=== PATIENT | female | born 1975 | race Caucasian/White ===

== ENCOUNTER 2018-05-01 18:43 | Emergency (ER) | payer OTHER, SELFPAY ==
[2018-05-01 19:24] VITALS: BP 154/106; PULSE 101; RESP 20; TEMP 37.2; O2SAT 100; BMI 46.4
--- NOTE | 2018-05-01 21:38 | ED_ITS ---
HPI - Ear Problem <VIKKI Alcazar - Last Filed: 05/01/18 22:04> General Chief complaint: Ear Stated complaint: EAR INFECTION NOT MUCH MOVEMENT OF FACE Time Seen by Provider: 05/01/18 21:15 Source: patient Mode of arrival: ambulatory Limitations: no limitations History of Present Illness HPI Narrative: 42-year-old female here for complaint of having pain and fullness to her right ear on and off over the past several weeks. She denies having a fever. She denies any drainage from the right ear. She reports that she has had cold-like symptoms on off for the past couple weeks as well. She was treated for otitis media with antibiotics which she reports she has completed that regimen. She also reports over the last couple of days that she has had some decreased ability to blink on the right eye. And also weakness to the right side of her lips. She denies any trauma to the inside of her face. She is ambulatory in the emergency room. No other neurological deficits. No weakne sses to her extremities. Positive p.o. intake. No nausea vomiting. No other concerns or complaints at this time. MD Complaint: ear pain Related Data Previous Rx's Medication Instructions Recorded artificial tears(hypromellose) 2 drop EYE-RIGHT Q3H PRN #15 ml 05/01/18 prednisone See Rx Instructions .ROUTE 05/01/18 .COMPLEX #45 tab Allergies Allergy/AdvReac Type Severity Reaction Status Date / Time cyclobenzaprine Allergy Rash Verified 05/01/18 19:30 [From Flexeril] Review of Systems <VIKKI Alcazar - Last Filed: 05/01/18 22:04> Constitutional Denies chills, Denies fever(s), Denies lethargy and Denies weakness Eyes Denies change in vision, Denies eye discharge, Denies irritation and Denies loss of vision ENT Comments: Decreased movement to right lips and also right eyelid. Complaint of fullness and discomfort to her right ear. Cardiovascular Denies chest pain, Denies irregular heart rhythm, Denies lightheadedness, Denies palpitations, Denies dyspnea, Denies dyspnea on exertion and Denies orthopnea Respiratory Denies cough, Denies dyspnea, Denies dyspnea on exertion and Denies wheezing Genitourinary Denies hematuria, Denies flank pain, Denies urinary incontinence and Denies urinary urgency Musculoskeletal Denies back pain, Denies muscle weakness, Denies numbness and Denies tingling Integumentary/Breasts Denies pruritus, Denies erythema, Denies rash and Denies wounds Neurologic Denies loss of vision, Denies numbness, Denies tingling and Denies weakness Endocrine Denies palpitations Hematologic/Lymphatic Denies easy bruising Allergic/Immunologic Denies wheezing PFSH <VIKKI Alcazar - Last Filed: 05/01/18 22:04> Social History Smoking Status: Former smoker Social History Smoking Status: Former smoker Exam <VIKKI Alcazar - Last Filed: 05/01/18 22:04> Initial Vital Signs Initial Vital Signs: Vital Signs Temperature 99.0 F 05/01/18 19:24 Pulse Rate 101 H 05/01/18 19:24 Respiratory Rate 20 05/01/18 19:24 Blood Pressure 154/106 H 05/01/18 19:24 Pulse Oximetry 100 05/01/18 19:24 Const General: cooperative and well developed Nutritional Appearance: well nourished Orientation: alert, awake, oriented x3 and not confused HENMT Ears: hearing grossly normal bilaterally, external ears normal and TM's normal bilaterally Face and sinus: abnormal facial exam, face asymmetric (Decreased movement of the right lips. Decreased strength the right eyelid) and other (Patient able to close right eyelids. No weakness of the right forehead) Mouth: oral mucosae normal and mucous membranes abnormal Teeth and gingiva: dentition normal Throat: posterior oropharynx normal Eyes Conjunctivae: conjunctivae normal Sclera: sclerae normal Pupils: PERRL EOM: EOM intact bilaterally Cardio Rate: regular rate Rhythm: regular rhythm Heart Sounds: no click, no gallops, no murmurs and no rubs Pulses: normal peripheral pulses Neuro General: alert, oriented x3, gait normal and no focal motor deficits Speech: speech normal <Felicita Harris DO - Last Filed: 05/02/18 05:03> Initial Vital Signs Initial Vital Signs: Vital Signs Temperature 99.0 F 05/01/18 19:24 Pulse Rate 101 H 05/01/18 19:24 Respiratory Rate 20 05/01/18 19:24 Blood Pressure 154/106 H 05/01/18 19:24 Pulse Oximetry 100 05/01/18 19:24 Course <Kody VIKKI Lindsay - Last Filed: 05/01/18 22:04> Vital Signs - 8 hr 05/01/18 21:40 Temperature 97.8 F Pulse Rate 93 H Blood Pressure [Right Arm] 152/97 H Pulse Oximetry 97 <Felicita Harris DO - Last Filed: 05/02/18 05:03> Vital Signs - 8 hr 05/01/18 21:40 Temperature 97.8 F Pulse Rate 93 H Blood Pressure [Right Arm] 152/97 H Pulse Oximetry 97 Medical Decision Making <Kody VIKKI Lindsay - Last Filed: 05/01/18 22:04> MDM Narrative Medical decision making narrative: No appreciated ear infection on exam today. Signs and symptoms presents as serous otitis secondary to eustachian dysfunction due to a viral illness. Facial weakness appears as starting a Ruiz's palsy also most likely secondary to a viral illness. She is prescribed prednisone. She is also prescribed artificial tears to help keep her right eye are moist. Follow up with primary care provider later this week for re-evaluation. For any worsening symptoms return to the emergency room. Blood pressure was elevated today in the emergency room. Patient states she had this on last exam as well she is encouraged to follow up with primary care provider for evaluation of her elevated blood pressure today. Discharge Plan Departure Patient Disposition: Home Clinical Impression: Ruiz's palsy Acute serous otitis media Qualifiers: Laterality: right Recurrence: recurrent Qualified Code(s): H65.04 - Acute serous otitis media, recurrent, right ear Discharge Date/Time: 05/01/18 22:08 Interventions: ED Discharge Assessment Last Done: 05/01/18 22:07 Activity Restrictions/Additional Instructions: Right ear does not appear infected at this time right ear pressure and discomfort appears as having fluid in her middle ear secondary to eustachian tube dysfunction from the viral illnesses that you have had over the past several weeks. Weakness to the right side of the face appears to be Ruiz's palsy also most likely secondary to viral illnesses that you have had. You have been prescribed prednisone which is a steroid for anti-inflammatory effects use as directed. Also use artificial tears to keep her right eye moist to prevent f rom drying out as the eyelid can become weak. Blood pressure was elevated today. Recommend follow up with primary care provider for further evaluation for discussion of hypertension. For any worsening symptoms return to the emergency room. Prescriptions: New prednisone 20 mg tablet See Rx Instructions .ROUTE .COMPLEX Qty: 45 RF: 0 artificial tears(hypromellose) 0.5 % drops 2 drop EYE-RIGHT Q3H PRN (Reason: dry eyes) Qty: 15 RF: 0 Referrals: [facility] [Provider Group] <Felicita Harris, - Last Filed: 05/02/18 05:03> Cosign ED Attending Mckayature Attestation: I was immediately available in the department for consultation. Documentation has been reviewed. I agree with assessment and plan.
[2018-05-01 21:40] VITALS: BP 152/97; PULSE 93; TEMP 36.6; O2SAT 97
== END 2018-05-01 22:08 | disposition home or self-care (01) ==
PROVIDERS: Emergency Provider Nurse Practitioner Family
DX: G51.0 Bell's palsy (principal)
CPT/HCPCS: 99282

== ENCOUNTER 2018-07-03 13:33 | Emergency (ER) | payer OTHER, SELFPAY ==
[2018-07-03 13:48] VITALS: BP 161/103; PULSE 125; RESP 26; TEMP 36.4; O2SAT 98
[2018-07-03 14:00] VITALS: BP 161/99; PULSE 111; RESP 21; O2SAT 97
--- NOTE | 2018-07-03 14:11 | DI.RAD.S_ITS ---
PROCEDURE: XR CHEST 1V INDICATIONS: short of breath, tachy TECHNIQUE: One view of the chest was acquired. COMPARISON: None. FINDINGS: Surgical changes and devices: None. Lungs and pleura: Lungs are clear. No pleural effusions or pneumothorax. Mediastinum: Mediastinal contours appear normal. Heart size is normal. Bones and chest wall: No suspicious bony lesions. Overlying soft tissues appear unremarkable. IMPRESSION: 1. No acute cardiopulmonary disease. Dictated by: King Shelton M.D. on 07/03/2018 at 14:55 Approved by: King Shelton M.D. on 07/03/2018 at 14:55
--- NOTE | 2018-07-03 14:17 | ED.HA ---
HPI - Headache <NOLA Ochoa - Last Filed: 07/03/18 19:08> General Chief Complaint: Headache Stated Complaint: Head pain Time Seen by Provider: 07/03/18 14:10 Source: patient Mode of arrival: ambulatory Limitations: no limitations History of Present Illness HPI Narrative: The patient is a 42-year-old female former smoker with history of PCOS who presents with a chief complaint headache that started back in April. She was seen at this facility and diagnosed with Ruiz's palsy, followed up with ENT. Since then she has been complaining of worsening pain extending from the right side of her face around to the back. She states she feels numbness throughout pieces of ?her brain and that her pain has become significantly worse over the past few days. She denies any thunderclap sensation. She stated her pain initially improved with steroids, but now it is worse. She does complain shortness of breath. She denies any fevers nausea vomiting or diarrhea. Related Data Home Medications Medication Instructions Recorded Confirmed Calcium 1 tab PO DAILY 07/03/18 07/03/18 Glucosamine 1 tab PO DAILY 07/03/18 07/03/18 Gonzales-3 1 cap PO DAILY 07/03/18 07/03/18 duloxetine 20 mg PO BID 07/03/18 07/03/18 multivitamin 1 tab PO DAILY 07/03/18 07/03/18 prednisone 1 dose PO TAPER 07/03/18 07/03/18 Previous Rx's Medication Instructions Recorded artificial tears(hypromellose) 2 drop EYE-RIGHT Q3H PRN #15 ml 05/01/18 ketorolac 10 mg PO Q4-6H PRN 2 Days #8 tab 07/03/18 Allergies Allergy/AdvReac Type Severity Reaction Status Date / Time cyclobenzaprine Allergy Rash Verified 05/01/18 19:30 [[facility] Review of Systems <NOLA Ochoa - Last Filed: 07/03/18 19:08> Review of Systems GENERAL: Denies chills, fatigue, malaise, fever, sweats. HEENT: Denies sinus pain, ear pain, sore throat, difficulty swallowing, dizziness. RESPIRATORY: Denies dyspnea, cough, wheezing, hemoptysis, sputum. CARDIOVASCULAR: Denies chest pain, palpitations, orthopnea, edema, GASTROINTESTINAL: Denies nausea, vomiting, abdominal pain, diarrhea, constipation, melena. : Denies dysuria, frequency, incontinence, hematuria, urinary retention. MUSCULOSKELETAL: denies weakness, joint pain, or bony pain SKIN: Denies rash, skin lesions, or other NEUROLOGIC: See HPI PSYCHIATRIC: No concerning psychosocial issues. 12 point review of systems is negative except for those stated above PFSH <NOLA Ochoa - Last Filed: 07/03/18 19:08> Social History Smoking Status: Former smoker Social History Smoking Status: Former smoker Exam <NOAL Ochoa - Last Filed: 07/03/18 19:08> Narrative Exam Narrative: GENERAL: Obese female lying on stretcher appears slightly short of breath HEAD: Atraumatic. Normocephalic. pain to palpation right sinus area. EYES: Pupils equal round and reactive. Extraocular motions intact. No scleral icterus. No injection or drainage. ENT: Nose without bleeding, purulent drainage or septal hematoma. Throat without erythema, tonsillar hypertrophy or exudate. Uvula midline. Airway patent. NECK: Trachea midline. No JVD or lymphadenopathy. Supple, nontender, no meningeal signs. CARDIOVASCULAR: Regular rhythm without murmurs, gallops, or rubs. tachycardic rate. RESPIRATORY: Clear to auscultation. Breath sounds equal bilaterally. No wheezes, rales, or rhonchi. No cough. 4-6 word dyspnea noted. NEURO: AOx3. Strength is equal upper and lower extremities bilaterally. Cranial nerves grossly intact. SKIN: No rash or erythema. Initial Vital Signs Initial Vital Signs: Vital Signs Temperature 97.5 F L 07/03/18 13:48 Pulse Rate 125 H 07/03/18 13:48 Respiratory Rate 26 H 07/03/18 13:48 Blood Pressure 161/103 H 07/03/18 13:48 Pulse Oximetry 98 07/03/18 13:48 <Felicita Harris DO - Last Filed: 07/04/18 11:24> Initial Vital Signs Initial Vital Signs: Vital Signs Temperature 97.5 F L 07/03/18 13:48 Pulse Rate 125 H 07/03/18 13:48 Respiratory Rate 26 H 07/03/18 13:48 Blood Pressure 161/103 H 07/03/18 13:48 Pulse Oximetry 98 07/03/18 13:48 Course <HERBERT OchoaP-BC - Last Filed: 07/03/18 19:08> Orders Ordered: Discontinued Medications Dexamethasone (Decadron) 10 mg IV NOW ONE Stop: 07/03/18 14:23 Last Admin: 07/03/18 14:49 Dose: 10 mg Diphenhydramine HCl (Benadryl) 50 mg IV NOW ONE Stop: 07/03/18 15:24 Last Admin: 07/03/18 15:39 Dose: 50 mg Sodium Chloride (Normal Saline 0.9%) 1,000 mls @ 1,000 mls/hr IV BOLUS ONE Stop: 07/03/18 16:45 Last Infusion: 07/03/18 17:59 Dose: 0 mls/hr Admin: 07/03/18 15:51 Dose: 1,000 mls/hr Ketorolac Tromethamine (Toradol) 30 mg IV NOW ONE Stop: 07/03/18 15:24 Last Admin: 07/03/18 15:39 Dose: 30 mg Vital Signs - 8 hr 07/03/18 13:48 07/03/18 14:00 07/03/18 16:31 Temperature 97.5 F L Pulse Rate 125 H 111 H 89 Respiratory Rate 26 H 21 17 Blood Pressure 161/103 H Blood Pressure [Left Wrist] 161/99 H 143/94 H Pulse Oximetry 98 97 96 07/03/18 17:36 Temperature Pulse Rate 85 Respiratory Rate 17 Blood Pressure Blood Pressure [Left Wrist] 145/104 H Pulse Oximetry 97 <Felicita Harris DO - Last Filed: 07/04/18 11:24> Orders Ordered: Discontinued Medications Dexamethasone (Decadron) 10 mg IV NOW ONE Stop: 07/03/18 14:23 Last Admin: 07/03/18 14:49 Dose: 10 mg Diphenhydramine HCl (Benadryl) 50 mg IV NOW ONE Stop: 07/03/18 15:24 Last Admin: 07/03/18 15:39 Dose: 50 mg Sodium Chloride (Normal Saline 0.9%) 1,000 mls @ 1,000 mls/hr IV BOLUS ONE Stop: 07/03/18 16:45 Last Infusion: 07/03/18 17:59 Dose: 0 mls/hr Admin: 07/03/18 15:51 Dose: 1,000 mls/hr Ketorolac Tromethamine (Toradol) 30 mg IV NOW ONE Stop: 07/03/18 15:24 Last Admin: 07/03/18 15:39 Dose: 30 mg Vital Signs - 8 hr 07/03/18 13:48 07/03/18 14:00 07/03/18 16:31 Temperature 97.5 F L Pulse Rate 125 H 111 H 89 Respiratory Rate 26 H 21 17 Blood Pressure 161/103 H Blood Pressure [Left Wrist] 161/99 H 143/94 H Pulse Oximetry 98 97 96 07/03/18 17:36 Temperature Pulse Rate 85 Respiratory Rate 17 Blood Pressure Blood Pressure [Left Wrist] 145/104 H Pulse Oximetry 97 MDM - Headache <HERBERT OchoaP-BC - Last Filed: 07/03/18 19:08> Lab Data Result diagrams: 07/03/18 14:20 07/03/18 14:20 Lab Results 07/03/18 07/03/18 07/03/18 Range/Units 14:20 14:20 14:20 WBC 13.3 H (4.5-11.0) X10^3/uL RBC 4.92 (4.0-5.2) X10^6/uL Hgb 14.1 (12.0-16.0) g/dL Hct 42.1 (36-46) % MCV 85.6 (80-100) fL MCH 28.6 (26-34) PG MCHC 33.4 (30-36) % RDW 13.6 (11.6-14.8) % Plt Count 304 (150-400) X10^3/uL Neut % (Auto) 84.2 H (50-75) % Lymph % (Auto) 12.9 L (25-40) % Cambria % (Auto) 2.2 L (3-14) % Eos % (Auto) 0.1 L (2-4) % Baso % (Auto) 0.6 (0-2) % Neut # (Auto) 41641 H (4578-0541) /uL Lymph # (Auto) 1700 (5262-5777) /uL Cambria # (Auto) 300 (0-900) /uL Eos # (Auto) 0 (0-450) /uL Baso # (Auto) 100 (0-100) /uL PT 11.6 (10.1-12.7) SECONDS INR 1.0 (0.9-1.3) D-Dimer < 200 (<230) ng/mL Sodium 132 L (137-145) mmol/L Potassium 4.6 (3.4-5.1) mmol/L Chloride 96 L (98-107) mmol/L Carbon Dioxide 22 (22-32) mmol/L BUN 16 (7-17) mg/dL Creatinine 0.60 (0.52-1.04) mg/dL Estimated GFR > 60.0 (>60) mL/min BUN/Creatinine Ratio 26.7 H (6-22) Glucose 352 H (70-100) mg/dL Calcium 9.2 (8.4-10.2) mg/dL Total Bilirubin 0.9 (0.2-1.3) mg/dL AST 27 (14-36) IU/L ALT 41 (9-52) IU/L Alkaline Phosphatase 78 (38-126) U/L Total Creatine Kinase 21 L (30-135) U/L CK-MB (CK-2) TNP CK-MB (CK-2) Rel Index TNP Troponin I < 0.012 (0.01-0.034) ng/mL Total Protein 7.5 (6.3-8.2) g/dL Albumin 4.4 (3.5-5.0) g/dL Globulin 3.1 (1.7-4.1) g/dL Albumin/Globulin Ratio 1.4 (1.0-2.8) Urine RBC (0-5/HPF) Urine WBC (0-5/HPF) Ur Squamous Epith Cells (0-5/HPF) Urine Bacteria (None) Ur Culture Indicated? 07/03/18 Range/Units 15:15 WBC (4.5-11.0) X10^3/uL RBC (4.0-5.2) X10^6/uL Hgb (12.0-16.0) g/dL Hct (36-46) % MCV (80-100) fL MCH (26-34) PG MCHC (30-36) % RDW (11.6-14.8) % Plt Count (150-400) X10^3/uL Neut % (Auto) (50-75) % Lymph % (Auto) (25-40) % Cambria % (Auto) (3-14) % Eos % (Auto) (2-4) % Baso % (Auto) (0-2) % Neut # (Auto) (1219-1885) /uL Lymph # (Auto) (7997-6096) /uL Cambria # (Auto) (0-900) /uL Eos # (Auto) (0-450) /uL Baso # (Auto) (0-100) /uL PT (10.1-12.7) SECONDS INR (0.9-1.3) D-Dimer (<230) ng/mL Sodium (137-145) mmol/L Potassium (3.4-5.1) mmol/L Chloride (98-107) mmol/L Carbon Dioxide (22-32) mmol/L BUN (7-17) mg/dL Creatinine (0.52-1.04) mg/dL Estimated GFR (>60) mL/min BUN/Creatinine Ratio (6-22) Glucose (70-100) mg/dL Calcium (8.4-10.2) mg/dL Total Bilirubin (0.2-1.3) mg/dL AST (14-36) IU/L ALT (9-52) IU/L Alkaline Phosphatase (38-126) U/L Total Creatine Kinase (30-135) U/L CK-MB (CK-2) CK-MB (CK-2) Rel Index Troponin I (0.01-0.034) ng/mL Total Protein (6.3-8.2) g/dL Albumin (3.5-5.0) g/dL Globulin (1.7-4.1) g/dL Albumin/Globulin Ratio (1.0-2.8) Urine RBC None seen (0-5/HPF) Urine WBC None seen (0-5/HPF) Ur Squamous Epith Cells 0-1 /hpf (0-5/HPF) Urine Bacteria None seen (None) Ur Culture Indicated? Cult not indicated Point of Care Testing Test Results Negative Urine Dip Bedside Urine Glucose 1000 mg/dl Bedside Urine Bilirubin - Negative Bedside Urine Ketone + 15 Urine Specific Niland 1.025 Bedside Urine Occult Blood - Negative Bedside Urine pH 6.0 Bedside Urine Protein - Negative Bedside Urine Urobilinogen - Negative Bedside Urine Nitrite - Negative Bedside Urine Leukocytes - Negative Esterase Imaging Data CT scan - head: Radiologist's impression: [address] [address] [address] Scan Report Signed Patient: Agustín Lopez#: [id number] : 1975Acct:[id number] Age/Sex: 42 / FDate of Service: 07/03/18 Loc: ED Accession Number: [id number] Procedure: CT head/brain wo con Ordering Provider: Keturah Leo-BC PROCEDURE: CT HEAD/BRAIN WO CON INDICATIONS: progressive headache, numbness, treated for bells palsy TECHNIQUE: Noncontrast 4.5 mm thick angled axial sections acquired from the foramen magnum to the vertex, with coronal and sagittal reformats. For radiation dose reduction, the following was used: automated exposure control, adjustment of mA and/or kV according to patient size. COMPARISON: None. FINDINGS: Image quality: Excellent. CSF spaces: Basal cisterns are patent. No extra-axial fluid collections. Ventricles are normal in size and shape. Brain: No midline shift. No intracranial masses or hemorrhage. Giordano-white matter interface is normal. Skull and face: Calvarium and visualized facial bones are intact, without suspicious lesions. Sinuses: Visualized sinuses and mastoids are clear. IMPRESSION: No acute intracranial disease process. Dictated by: Henrietta Ramirez MD, PhD on 07/03/2018 at 14:50 Approved by: Henrietta Ramirez MD, PhD on 07/03/2018 at 14:51 Chest x-ray: Radiologist's impression: [address] [address] XRay Report Signed Patient: Agustín Lopez#: [id number] : 1975Acct:[id number] Age/Sex: 42 / FDate of Service: 07/03/18 Loc: ED Accession Number: [id number] Procedure: XR chest 1V Ordering Provider: Keturah Leo MEAT APPRENTICE-BC PROCEDURE: XR CHEST 1V INDICATIONS: short of breath, tachy TECHNIQUE: One view of the chest was acquired. COMPARISON: None. FINDINGS: Surgical changes and devices: None. Lungs and pleura: Lungs are clear. No pleural effusions or pneumothorax. Mediastinum: Mediastinal contours appear normal. Heart size is normal. Bones and chest wall: No suspicious bony lesions. Overlying soft tissues appear unremarkable. IMPRESSION: 1. No acute cardiopulmonary disease. Dictated by: King Shelton M.D. on 07/03/2018 at 14:55 Approved by: King Shelton M.D. on 07/03/2018 at 14:55 ECG Data Prior ECG tracings: available for review Interpretation: Sinus tachycardia. Ventricular rate 107. No ST elevation or depression. No ectopy noted. MDM Narrative Medical decision making narrative: The patient is a 42-year-old female presents with a chief complaint of a headache. She has a normal head CT, which I obtained given her long-standing history of consistent headache. I did obtain a D-dimer and chest x-ray given her shortness of breath, both which came back normal. Her heart rate and blood pressure normalized after being treated for her pain with Toradol, dexamethasone and Benadryl. She stated her headache improved a lot after the medications. The patient was found have a blood sugar is 350, likely partially due to her consistent use of steroids over the past few weeks. I discussed initiating treatment for diabetes, but the patient declined at this point time and states she would rather do so with primary care provider. I encouraged her to follow up with her primary care provider in the next day. Patient had no questions or concerns. Discussed return precautions of concern of heart attack, stroke or acute concerns. <Felicita Harris, DO - Last Filed: 07/04/18 11:24> Lab Data Lab Results 07/03/18 07/03/18 07/03/18 Range/Units 14:20 14:20 14:20 WBC 13.3 H (4.5-11.0) X10^3/uL RBC 4.92 (4.0-5.2) X10^6/uL Hgb 14.1 (12.0-16.0) g/dL Hct 42.1 (36-46) % MCV 85.6 (80-100) fL MCH 28.6 (26-34) PG MCHC 33.4 (30-36) % RDW 13.6 (11.6-14.8) % Plt Count 304 (150-400) X10^3/uL Neut % (Auto) 84.2 H (50-75) % Lymph % (Auto) 12.9 L (25-40) % Cambria % (Auto) 2.2 L (3-14) % Eos % (Auto) 0.1 L (2-4) % Baso % (Auto) 0.6 (0-2) % Neut # (Auto) 18467 H (5474-2133) /uL Lymph # (Auto) 1700 (7967-7086) /uL Camb[place] # (Auto) 300 (0-900) /uL Eos # (Auto) 0 (0-450) /uL Baso # (Auto) 100 (0-100) /uL PT 11.6 (10.1-12.7) SECONDS INR 1.0 (0.9-1.3) D-Dimer < 200 (<230) ng/mL Sodium 132 L (137-145) mmol/L Potassium 4.6 (3.4-5.1) mmol/L Chloride 96 L (98-107) mmol/L Carbon Dioxide 22 (22-32) mmol/L BUN 16 (7-17) mg/dL Creatinine 0.60 (0.52-1.04) mg/dL Estimated GFR > 60.0 (>60) mL/min BUN/Creatinine Ratio 26.7 H (6-22) Glucose 352 H (70-100) mg/dL Calcium 9.2 (8.4-10.2) mg/dL Total Bilirubin 0.9 (0.2-1.3) mg/dL AST 27 (14-36) IU/L ALT 41 (9-52) IU/L Alkaline Phosphatase 78 (38-126) U/L Total Creatine Kinase 21 L (30-135) U/L CK-MB (CK-2) TNP CK-MB (CK-2) Rel Index TNP Troponin I < 0.012 (0.01-0.034) ng/mL Total Protein 7.5 (6.3-8.2) g/dL Albumin 4.4 (3.5-5.0) g/dL Globulin 3.1 (1.7-4.1) g/dL Albumin/Globulin Ratio 1.4 (1.0-2.8) Urine RBC (0-5/HPF) Urine WBC (0-5/HPF) Ur Squamous Epith Cells (0-5/HPF) Urine Bacteria (None) Ur Culture Indicated? 07/03/18 Range/Units 15:15 WBC (4.5-11.0) X10^3/uL RBC (4.0-5.2) X10^6/uL Hgb (12.0-16.0) g/dL Hct (36-46) % MCV (80-100) fL MCH (26-34) PG MCHC (30-36) % RDW (11.6-14.8) % Plt Count (150-400) X10^3/uL Neut % (Auto) (50-75) % Lymph % (Auto) (25-40) % Cambria % (Auto) (3-14) % Eos % (Auto) (2-4) % Baso % (Auto) (0-2) % Neut # (Auto) (9593-1941) /uL Lymph # (Auto) (7234-8053) /uL Camb[place] # (Auto) (0-900) /uL Eos # (Auto) (0-450) /uL Baso # (Auto) (0-100) /uL PT (10.1-12.7) SECONDS INR (0.9-1.3) D-Dimer (<230) ng/mL Sodium (137-145) mmol/L Potassium (3.4-5.1) mmol/L Chloride (98-107) mmol/L Carbon Dioxide (22-32) mmol/L BUN (7-17) mg/dL Creatinine (0.52-1.04) mg/dL Estimated GFR (>60) mL/min BUN/Creatinine Ratio (6-22) Glucose (70-100) mg/dL Calcium (8.4-10.2) mg/dL Total Bilirubin (0.2-1.3) mg/dL AST (14-36) IU/L ALT (9-52) IU/L Alkaline Phosphatase (38-126) U/L Total Creatine Kinase (30-135) U/L CK-MB (CK-2) CK-MB (CK-2) Rel Index Troponin I (0.01-0.034) ng/mL Total Protein (6.3-8.2) g/dL Albumin (3.5-5.0) g/dL Globulin (1.7-4.1) g/dL Albumin/Globulin Ratio (1.0-2.8) Urine RBC None seen (0-5/HPF) Urine WBC None seen (0-5/HPF) Ur Squamous Epith Cells 0-1 /hpf (0-5/HPF) Urine Bacteria None seen (None) Ur Culture Indicated? Cult not indicated Point of Care Testing Test Results Negative Urine Dip Bedside Urine Glucose 1000 mg/dl Bedside Urine Bilirubin - Negative Bedside Urine Ketone + 15 Urine Specific Niland 1.025 Bedside Urine Occult Blood - Negative Bedside Urine pH 6.0 Bedside Urine Protein - Negative Bedside Urine Urobilinogen - Negative Bedside Urine Nitrite - Negative Bedside Urine Leukocytes - Negative Esterase ECG Data Attestation: I personally reviewed and interpreted this ECG as follows: Prior ECG tracings: not available for review Interpretation: Sinus tachycardia rate 7 MD interval [address] changes T-wave inversion noted in lead 3 Discharge Plan Departure Patient Disposition: Home Clinical Impression: Headache Qualifiers: Headache type: unspecified Headache chronicity pattern: chronic headache Intractability: intractable Qualified Code(s): R51 - Headache Discharge Date/Time: 07/03/18 18:00 Interventions: ED Discharge Assessment Last Done: 07/03/18 18:00 Instructions: DI for Headache Activity Restrictions/Additional Instructions: You head CT was normal today. Your blood pressure and heart rate normalized with some pain control and her blood test for clot was negative and your chest x-ray was normal. As we discussed, your blood sugar was high. Please follow up with primary care provider as soon as possible regarding your high blood sugar as well as your headaches. I have given you a prescription for Toradol. Do not combine this with ibuprofen Aleve or any other NSAIDs. Please come back to the emergency department for any acute concerns such as chest pain, shortness of breath concern of heart attack or stroke. Please follow up with primary care physician as soon as possible. Prescriptions: New ketorolac 10 mg tablet 10 mg PO Q4-6H PRN (Reason: pain) 2 Days Qty: 8 RF: 0 No Action prednisone 10 mg tablet 1 dose PO TAPER RF: 0 duloxetine 20 mg capsule,delayed release(DR/EC) 20 mg PO BID RF: 0 multivitamin Tablet 1 tab PO DAILY RF: 0 Calcium 1 tab PO DAILY RF: 0 Glucosamine 1 tab PO DAILY RF: 0 Gonzales-3 1 cap PO DAILY RF: 0 artificial tears(hypromellose) 0.5 % drops 2 drop EYE-RIGHT Q3H PRN (Reason: dry eyes) Qty: 15 RF: 0 [facility]: [email or web address] [Provider Group] <Felicita Harris, DO - Last Filed: 07/04/18 11:24> Cosign ED Attending Mckayature Attestation: I was immediately available in the department for consultation. Documentation has been reviewed. I agree with assessment and plan.
--- NOTE | 2018-07-03 14:20 | ED_ITS ---
HPI - Headache <NOLA Ochoa - Last Filed: 07/03/18 19:08> General Chief Complaint: Headache Stated Complaint: Head pain Time Seen by Provider: 07/03/18 14:10 Source: patient Mode of arrival: ambulatory Limitations: no limitations History of Present Illness HPI Narrative: The patient is a 42-year-old female former smoker with history of PCOS who presents with a chief complaint headache that started back in April. She was seen at this facility and diagnosed with Ruiz's palsy, followed up with ENT. Since then she has been complaining of worsening pain extending from the right side of her face around to the back. She states she feels numbness throughout pieces of ?her brain and that her pain has become significantly worse over the past few days. She denies any thunderclap sensation. She stated her pain initially improved with steroids, but now it is worse. She does complain shortness of breath. She denies any fevers nausea vomiting or diarrhea. Related Data Home Medications Medication Instructions Recorded Confirmed Calcium 1 tab PO DAILY 07/03/18 07/03/18 Glucosamine 1 tab PO DAILY 07/03/18 07/03/18 [place]-3 1 cap PO DAILY 07/03/18 07/03/18 duloxetine 20 mg PO BID 07/03/18 07/03/18 multivitamin 1 tab PO DAILY 07/03/18 07/03/18 prednisone 1 dose PO TAPER 07/03/18 07/03/18 Previous Rx's Medication Instructions Recorded artificial tears(hypromellose) 2 drop EYE-RIGHT Q3H PRN #15 ml 05/01/18 ketorolac 10 mg PO Q4-6H PRN 2 Days #8 tab 07/03/18 Allergies Allergy/AdvReac Type Severity Reaction Status Date / Time cyclobenzaprine Allergy Rash Verified 05/01/18 19:30 [facility] Review of Systems <NOLA Ochoa - Last Filed: 07/03/18 19:08> Review of Systems GENERAL: Denies chills, fatigue, malaise, fever, sweats. HEENT: Denies sinus pain, ear pain, sore throat, difficulty swallowing, dizz iness. RESPIRATORY: Denies dyspnea, cough, wheezing, hemoptysis, sputum. CARDIOVASCULAR: Denies chest pain, palpitations, orthopnea, edema, GASTROINTESTINAL: Denies nausea, vomiting, abdominal pain, diarrhea, constipation, melena. : Denies dysuria, frequency, incontinence, hematuria, urinary retention. MUSCULOSKELETAL: denies weakness, joint pain, or bony pain SKIN: Denies rash, skin lesions, or other NEUROLOGIC: See HPI PSYCHIATRIC: No concerning psychosocial issues. 12 point review of systems is negative except for those stated above PFSH <NOLA Ochoa - Last Filed: 07/03/18 19:08> Social History Smoking Status: Former smoker Social History Smoking Status: Former smoker Exam <NOLA Ochoa - Last Filed: 07/03/18 19:08> Narrative Exam Narrative: GENERAL: Obese female lying on stretcher appears slightly short of breath HEAD: Atraumatic. Normocephalic. pain to palpation right sinus area. EYES: Pupils equal round and reactive. Extraocular motions intact. No scleral icterus. No injection or drainage. ENT: Nose without bleeding, purulent drainage or septal hematoma. Throat without erythema, tonsillar hypertrophy or exudate. Uvula midline. Airway patent. NECK: Trachea midline. No JVD or lymphadenopathy. Supple, nontender, no meninge al signs. CARDIOVASCULAR: Regular rhythm without murmurs, gallops, or rubs. tachycardic rate. RESPIRATORY: Clear to auscultation. Breath sounds equal bilaterally. No wheezes, rales, or rhonchi. No cough. 4-6 word dyspnea noted. NEURO: AOx3. Strength is equal upper and lower extremities bilaterally. Cranial nerves grossly intact. SKIN: No rash or erythema. Initial Vital Signs Initial Vital Signs: Vital Signs Temperature 97.5 F L 07/03/18 13:48 Pulse Rate 125 H 07/03/18 13:48 Respiratory Rate 26 H 07/03/18 13:48 Blood Pressure 161/103 H 07/03/18 13:48 Pulse Oximetry 98 07/03/18 13:48 <Felicita Harris DO - Last Filed: 07/04/18 11:24> Initial Vital Signs Initial Vital Signs: Vital Signs Temperature 97.5 F L 07/03/18 13:48 Pulse Rate 125 H 04/22/19 13:48 Respiratory Rate 26 H 07/03/18 13:48 Blood Pressure 161/103 H 07/03/18 13:48 Pulse Oximetry 98 07/03/18 13:48 Course <HERBERT OchoaP-BC - Last Filed: 07/03/18 19:08> Orders Ordered: Discontinued Medications Dexamethasone (Decadron) 10 mg IV NOW ONE Stop: 07/03/18 14:23 Last Admin: 07/03/18 14:49 Dose: 10 mg Diphenhydramine HCl (Benadryl) 50 mg IV NOW ONE Stop: 07/03/18 15:24 Last Admin: 07/03/18 15:39 Dose: 50 mg Sodium Chloride (Normal Saline 0.9%) 1,000 mls @ 1,000 mls/hr IV BOLUS ONE Stop: 07/03/18 16:45 Last Infusion: 07/03/18 17:59 Dose: 0 mls/hr Admin: 07/03/18 15:51 Dose: 1,000 mls/hr Ketorolac Tromethamine (Toradol) 30 mg IV NOW ONE Stop: 07/03/18 15:24 Last Admin: 07/03/18 15:39 Dose: 30 mg Vital Signs - 8 hr 07/03/18 13:48 07/03/18 14:00 07/03/18 16:31 Temperature 97.5 F L Pulse Rate 125 H 111 H 89 Respiratory Rate 26 H 21 17 Blood Pressure 161/103 H Blood Pressure [Left Wrist] 161/99 H 143/94 H Pulse Oximetry 98 97 96 07/03/18 17:36 Temperature Pulse Rate 85 Respiratory Rate 17 Blood Pressure Blood Pressure [Left Wrist] 145/104 H Pulse Oximetry 97 <Felicita Harris DO - Last Filed: 07/04/18 11:24> Orders Ordered: Discontinued Medications Dexamethasone (Decadron) 10 mg IV NOW ONE Stop: 07/03/18 14:23 Last Admin: 07/03/18 14:49 Dose: 10 mg Diphenhydramine HCl (Benadryl) 50 mg IV NOW ONE Stop: 07/03/18 15:24 Last Admin: 07/03/18 15:39 Dose: 50 mg Sodium Chloride (Normal Saline 0.9%) 1,000 mls @ 1,000 mls/hr IV BOLUS ONE Stop: 07/03/18 16:45 Last Infusion: 07/03/18 17:59 Dose: 0 mls/hr Admin: 07/03/18 15:51 Dose: 1,000 mls/hr Ketorolac Tromethamine (Toradol) 30 mg IV NOW ONE Stop: 07/03/18 15:24 Last Admin: 07/03/18 15:39 Dose: 30 mg Vital Signs - 8 hr 07/03/18 13:48 07/03/18 14:00 07/03/18 16:31 Temperature 97.5 F L Pulse Rate 125 H 111 H 89 Respiratory Rate 26 H 21 17 Blood Pressure 161/103 H Blood Pressure [Left Wrist] 161/99 H 143/94 H Pulse Oximetry 98 97 96 07/03/18 17:36 Temperature Pulse Rate 85 Respiratory Rate 17 Blood Pressure Blood Pressure [Left Wrist] 145/104 H Pulse Oximetry 97 MDM - Headache <KULDIP Ochoa-BC - Last Filed: 07/03/18 19:08> Lab Data Result diagrams: 07/03/18 14:20 07/03/18 14:20 Lab Results 07/03/18 07/03/18 07/03/18 Range/Units 14:20 14:20 14:20 WBC 13.3 H (4.5-11.0) X10^3/uL RBC 4.92 (4.0-5.2) X10^6/uL Hgb 14.1 (12.0-16.0) g/dL Hct 42.1 (36-46) % MCV 85.6 (80-100) fL MCH 28.6 (26-34) PG MCHC 33.4 (30-36) % RDW 13.6 (11.6-14.8) % Plt Count 304 (150-400) X10^3/uL Neut % (Auto) 84.2 H (50-75) % Lymph % (Auto) 12.9 L (25-40) % [place] % (Auto) 2.2 L (3-14) % Eos % (Auto) 0.1 L (2-4) % Baso % (Auto) 0.6 (0-2) % Neut # (Auto) 28105 H (4233-2975) /uL Lymph # (Auto) 1700 (5921-1885) /uL [place] # (Auto) 300 (0-900) /uL Eos # (Auto) 0 (0-450) /uL Baso # (Auto) 100 (0-100) /uL PT 11.6 (10.1-12.7) SECONDS INR 1.0 (0.9-1.3) D-Dimer < 200 (<230) ng/mL Sodium 132 L (137-145) mmol/L Potassium 4.6 (3.4-5.1) mmol/L Chloride 96 L (98-107) mmol/L Carbon Dioxide 22 (22-32) mmol/L BUN 16 (7-17) mg/dL Creatinine 0.60 (0.52-1.04) mg/dL Estimated GFR > 60.0 (>60) mL/min BUN/Creatinine Ratio 26.7 H (6-22) Glucose 352 H (70-100) mg/dL Calcium 9.2 (8.4-10.2) mg/dL Total Bilirubin 0.9 (0.2-1.3) mg/dL AST 27 (14-36) IU/L ALT 41 (9-52) IU/L Alkaline Phosphatase 78 (38-126) U/L Total Creatine Kinase 21 L (30-135) U/L CK-MB (CK-2) TNP CK-MB (CK-2) Rel Index TNP Troponin I < 0.012 (0.01-0.034) ng/mL Total Protein 7.5 (6.3-8.2) g/dL Albumin 4.4 (3.5-5.0) g/dL Globulin 3.1 (1.7-4.1) g/dL Albumin/Globulin Ratio 1.4 (1.0-2.8) Urine RBC (0-5/HPF) Urine WBC (0-5/HPF) Ur Squamous Epith Cells (0-5/HPF) Urine Bacteria (None) Ur Culture Indicated? 07/03/18 Range/Units 15:15 WBC (4.5-11.0) X10^3/uL RBC (4.0-5.2) X10^6/uL Hgb (12.0-16.0) g/dL Hct (36-46) % MCV (80-100) fL MCH (26-34) PG MCHC (30-36) % RDW (11.6-14.8) % Plt Count (150-400) X10^3/uL Neut % (Auto) (50-75) % Lymph % (Auto) (25-40) % [place] % (Auto) (3-14) % Eos % (Auto) (2-4) % Baso % (Auto) (0-2) % Neut # (Auto) (2591-9093) /uL Lymph # (Auto) (0075-9772) /uL [place] # (Auto) (0-900) /uL Eos # (Auto) (0-450) /uL Baso # (Auto) (0-100) /uL PT (10.1-12.7) SECONDS INR (0.9-1.3) D-Dimer (<230) ng/mL Sodium (137-145) mmol/L Potassium (3.4-5.1) mmol/L Chloride (98-107) mmol/L Carbon Dioxide (22-32) mmol/L BUN (7-17) mg/dL Creatinine (0.52-1.04) mg/dL Estimated GFR (>60) mL/min BUN/Creatinine Ratio (6-22) Glucose (70-100) mg/dL Calcium (8.4-10.2) mg/dL Total Bilirubin (0.2-1.3) mg/dL AST (14-36) IU/L ALT (9-52) IU/L Alkaline Phosphatase (38-126) U/L Total Creatine Kinase (30-135) U/L CK-MB (CK-2) CK-MB (CK-2) Rel Index Troponin I (0.01-0.034) ng/mL Total Protein (6.3-8.2) g/dL Albumin (3.5-5.0) g/dL Globulin (1.7-4.1) g/dL Albumin/Globulin Ratio (1.0-2.8) Urine RBC None seen (0-5/HPF) Urine WBC None seen (0-5/HPF) Ur Squamous Epith Cells 0-1 /hpf (0-5/HPF) Urine Bacteria None seen (None) Ur Culture Indicated? Cult not indicated Point of Care Testing Test Results Negative Urine Dip Bedside Urine Glucose 1000 mg/dl Bedside Urine Bilirubin - Negative Bedside Urine Ketone + 15 Urine Specific [place] 1.025 Bedside Urine Occult Blood - Negative Bedside Urine pH 6.0 Bedside Urine Protein - Negative Bedside Urine Urobilinogen - Negative Bedside Urine Nitrite - Negative Bedside Urine Leukocytes - Negative Esterase Imaging Data CT scan - head: Radiologist's impression: [address] [address] [address] Scan Report Signed Patient: Agustín Lopez#: [id number] : 1975Acct:[id number] Age/Sex: 42 / FDate of Service: 07/03/18 Loc: ED Accession Number: [id number] Procedure: CT head/brain wo con Ordering Provider: Keturah Leo-BC PROCEDURE: CT HEAD/BRAIN WO CON INDICATIONS: progressive headache, numbness, treated for bells palsy TECHNIQUE: Noncontrast 4.5 mm thick angled axial sections acquired from the foramen magnum to the vertex, with coronal and sagittal reformats. For radiation dose reduction, the following was used: automated exposure control, adjustment of mA and/or kV according to patient size. COMPARISON: None. FINDINGS: Image quality: Excellent. CSF spaces: Basal cisterns are patent. No extra-axial fluid collections. Ventricles are normal in size and shape. Brain: No midline shift. No intracranial masses or hemorrhage. Giordano-white matter interface is normal. Skull and face: Calvarium and visualized facial bones are intact, without suspicious lesions. Sinuses: Visualized sinuses and mastoids are clear. IMPRESSION: No acute intracranial disease process. Dictated by: Henrietta Ramirez MD, PhD on 07/03/2018 at 14:50 Approved by: Henrietta Ramirez MD, PhD on 07/03/2018 at 14:51 Chest x-ray: Radiologist's impression: [address] [address] XRay Report Signed Patient: Agustín Lopez#: [id number] : 1975Acct:[id number] Age/Sex: 42 / FDate of Service: 07/03/18 Loc: ED Accession Number: [id number] Procedure: XR chest 1V Ordering Provider: Keturah LeoP-BC PROCEDURE: XR CHEST 1V INDICATIONS: short of breath, tachy TECHNIQUE: One view of the chest was acquired. COMPARISON: None. FINDINGS: Surgical changes and devices: None. Lungs and pleura: Lungs are clear. No pleural effusions or pneumothorax. Mediastinum: Mediastinal contours appear normal. Heart size is normal. Bones and chest wall: No suspicious bony lesions. Overlying soft tissues a ppear unremarkable. IMPRESSION: 1. No acute cardiopulmonary disease. Dictated by: King Shelton M.D. on 07/03/2018 at 14:55 Approved by: King Shelton M.D. on 07/03/2018 at 14:55 ECG Data Prior ECG tracings: available for review Interpretation: Sinus tachycardia. Ventricular rate 107. No ST elevation or depression. No ectopy noted. MDM Narrative Medical decision making narrative: The patient is a 42-year-old female presents with a chief complaint of a headache. She has a normal head CT, which I obt ained given her long-standing history of consistent headache. I did obtain a D- dimer and chest x-ray given her shortness of breath, both which came back normal. Her heart rate and blood pressure normalized after being treated for her pain with Toradol, dexamethasone and Benadryl. She stated her headache improved a lot after the medications. The patient was found have a blood sugar is 350, likely partially due to her consistent use of steroids over the past few weeks. I discussed initiating treatment for diabetes, but the patient declined at this point time and states she would rather do so with primary care provider. I encouraged her to follow up with her primary care provider in the next day. Patient had no questions or concerns. Discussed return precautions of concern of heart attack, stroke or acute concerns. <Felicita Harris, DO - Last Filed: 07/04/18 11:24> Lab Data Lab Results 07/03/18 07/03/18 07/03/18 Range/Units 14:20 14:20 14:20 WBC 13.3 H (4.5-11.0) X10^3/uL RBC 4.92 (4.0-5.2) X10^6/uL Hgb 14.1 (12.0-16.0) g/dL Hct 42.1 (36-46) % MCV 85.6 (80-100) fL MCH 28.6 (26-34) PG MCHC 33.4 (30-36) % RDW 13.6 (11.6-14.8) % Plt Count 304 (150-400) X10^3/uL Neut % (Auto) 84.2 H (50-75) % Lymph % (Auto) 12.9 L (25-40) % [place] % (Auto) 2.2 L (3-14) % Eos % (Auto) 0.1 L (2-4) % Baso % (Auto) 0.6 (0-2) % Neut # (Auto) 62106 H (3783-6284) /uL Lymph # (Auto) 1700 (5083-3013) /uL [place] # (Auto) 300 (0-900) /uL Eos # (Auto) 0 (0-450) /uL Baso # (Auto) 100 (0-100) /uL PT 11.6 (10.1-12.7) SECONDS INR 1.0 (0.9-1.3) D-Dimer < 200 (<230) ng/mL Sodium 132 L (137-145) mmol/L Potassium 4.6 (3.4-5.1) mmol/L Chloride 96 L (98-107) mmol/L Carbon Dioxide 22 (22-32) mmol/L BUN 16 (7-17) mg/dL Creatinine 0.60 (0.52-1.04) mg/dL Estimated GFR > 60.0 (>60) mL/min BUN/Creatinine Ratio 26.7 H (6-22) Glucose 352 H (70-100) mg/dL Calcium 9.2 (8.4-10.2) mg/dL Total Bilirubin 0.9 (0.2-1.3) mg/dL AST 27 (14-36) IU/L ALT 41 (9-52) IU/L Alkaline Phosphatase 78 (38-126) U/L Total Creatine Kinase 21 L (30-135) U/L CK-MB (CK-2) TNP CK-MB (CK-2) Rel Index TNP Troponin I < 0.012 (0.01-0.034) ng/mL Total Protein 7.5 (6.3-8.2) g/dL Albumin 4.4 (3.5-5.0) g/dL Globulin 3.1 (1.7-4.1) g/dL Albumin/Globulin Ratio 1.4 (1.0-2.8) Urine RBC (0-5/HPF) Urine WBC (0-5/HPF) Ur Squamous Epith Cells (0-5/HPF) Urine Bacteria (None) Ur Culture Indicated? 07/03/18 Range/Units 15:15 WBC (4.5-11.0) X10^3/uL RBC (4.0-5.2) X10^6/uL Hgb (12.0-16.0) g/dL Hct (36-46) % MCV (80-100) fL MCH (26-34) PG MCHC (30-36) % RDW (11.6-14.8) % Plt Count (150-400) X10^3/uL Neut % (Auto) (50-75) % Lymph % (Auto) (25-40) % [place] % (Auto) (3-14) % Eos % (Auto) (2-4) % Baso % (Auto) (0-2) % Neut # (Auto) (8164-8943) /uL Lymph # (Auto) (0303-6001) /uL [place] # (Auto) (0-900) /uL Eos # (Auto) (0-450) /uL Baso # (Auto) (0-100) /uL PT (10.1-12.7) SECONDS INR (0.9-1.3) D-Dimer (<230) ng/mL Sodium (137-145) mmol/L Potassium (3.4-5.1) mmol/L Chloride (98-107) mmol/L Carbon Dioxide (22-32) mmol/L BUN (7-17) mg/dL Creatinine (0.52-1.04) mg/dL Estimated GFR (>60) mL/min BUN/Creatinine Ratio (6-22) Glucose (70-100) mg/dL Calcium (8.4-10.2) mg/dL Total Bilirubin (0.2-1.3) mg/dL AST (14-36) IU/L ALT (9-52) IU/L Alkaline Phosphatase (38-126) U/L Total Creatine Kinase (30-135) U/L CK-MB (CK-2) CK-MB (CK-2) Rel Index Troponin I (0.01-0.034) ng/mL Total Protein (6.3-8.2) g/dL Albumin (3.5-5.0) g/dL Globulin (1.7-4.1) g/dL Albumin/Globulin Ratio (1.0-2.8) Urine RBC None seen (0-5/HPF) Urine WBC None seen (0-5/HPF) Ur Squamous Epith Cells 0-1 /hpf (0-5/HPF) Urine Bacteria None seen (None) Ur Culture Indicated? Cult not indicated Point of Care Testing Test Results Negative Urine Dip Bedside Urine Glucose 1000 mg/dl Bedside Urine Bilirubin - Negative Bedside Urine Ketone + 15 Urine Specific [place] 1.025 Bedside Urine Occult Blood - Negative Bedside Urine pH 6.0 Bedside Urine Protein - Negative Bedside Urine Urobilinogen - Negative Bedside Urine Nitrite - Negative Bedside Urine Leukocytes - Negative Esterase ECG Data Attestation: I personally reviewed and interpreted this ECG as follows: Prior ECG tracings: not available for review Interpretation: Sinus tachycardia rate 7 [place] interval [address] changes T-wave inversion noted in lead 3 Discharge Plan Departure Patient Disposition: Home Clinical Impression: Headache Qualifiers: Headache type: unspecified Headache chronicity pattern: chronic headache Intractability: intractable Qualified Code(s): R51 - Headache Discharge Date/Time: 07/03/18 18:00 Interventions: ED Discharge Assessment Last Done: 07/03/18 18:00 Instructions: DI for Headache Activity Restrictions/Additional Instructions: You head CT was normal today. Your blood pressure and heart rate normalized with some pain control and her blood test for clot was negative and your chest x-ray was normal. As we discussed, your blood sugar was high. Please follow up with primary care provider as soon as possible regarding your high blood sugar a s well as your headaches. I have given you a prescription for Toradol. Do not combine this with ibuprofen Aleve or any other NSAIDs. Please come back to the emergency department for any acute concerns such as chest pain, shortness of breath concern of heart attack or stroke. Please follow up with primary care physician as soon as possible. Prescriptions: New ketorolac 10 mg tablet 10 mg PO Q4-6H PRN (Reason: pain) 2 Days Qty: 8 RF: 0 No Action prednisone 10 mg tablet 1 dose PO TAPER RF: 0 duloxetine 20 mg capsule,delayed release(DR/EC) 20 mg PO BID RF: 0 multivitamin Tablet 1 tab PO DAILY RF: 0 Calcium 1 tab PO DAILY RF: 0 Glucosamine 1 tab PO DAILY RF: 0 [place]-3 1 cap PO DAILY RF: 0 artificial tears(hypromellose) 0.5 % drops 2 drop EYE-RIGHT Q3H PRN (Reason: dry eyes) Qty: 15 RF: 0 Referrals: [facility] [Provider Group] <Felicita Harris, DO - Last Filed: 07/04/18 11:24> Cosign ED Attending Cosignature Attestation: I was immediately available in the department for consultation. Documentation has been reviewed. I agree with assessment and plan.
[2018-07-03 14:25] LABS: Add Manual Diff / Slide Review NO; Basophils Absolute Auto 100 /uL (0-100); Basophils Percent Auto 0.6 % (0-2); Eosinophils Absolute Auto 0 /uL (0-450); Eosinophils Percent Auto 0.1 % (2-4); Hematocrit 42.1 % (36-46); Hemoglobin 14.1 g/dL (12.0-16.0); Lymphocytes Absolute Auto 1700 /uL (1100-4500); Lymphocytes Percent Auto 12.9 % (25-40); Mean Corpuscular HGB Conc 33.4 % (30-36); Mean Corpuscular Hemoglobin 28.6 PG (26-34); Mean Corpuscular Volume 85.6 fL (80-100); Monocytes Absolute Auto 300 /uL (0-900); Monocytes Percent Auto 2.2 % (3-14); Neutrophils Absolute Auto 11200 /uL (1500-7000); Neutrophils Percent Auto 84.2 % (50-75); Platelet Count 304 X10^3/uL (150-400); Red Blood Cell Count 4.92 X10^6/uL (4.0-5.2); Red Cell Distribution Width 13.6 % (11.6-14.8); White Blood Cell Count 13.3 X10^3/uL (4.5-11.0)
[2018-07-03 14:33] LABS: Prothrombin Time 11.6 SECONDS (10.1-12.7)
[2018-07-03 14:38] LABS: Alanine Aminotransferase 41 IU/L (9-52); Albumin 4.4 g/dL (3.5-5.0); Albumin Globulin Ratio 1.4 (1.0-2.8); Alkaline Phosphatase 78 U/L (38-126); Aspartate Aminotransferase 27 IU/L (14-36); BUN Creatinine Ratio 26.7 (6-22); Bilirubin Total 0.9 mg/dL (0.2-1.3); Blood Urea Nitrogen 16 mg/dL (7-17); Calcium 9.2 mg/dL (8.4-10.2); Carbon Dioxide 22 mmol/L (22-32); Chloride 96 mmol/L (98-107); Creatine Kinase 21 U/L (30-135); Estimated Glomerular Filt Rate > 60.0 mL/min (>60); Globulin 3.1 g/dL (1.7-4.1); Glucose 352 mg/dL (70-100); HEMOLYSIS < 15 (0-50); Potassium 4.6 mmol/L (3.4-5.1); Sodium 132 mmol/L (137-145); Total Protein 7.5 g/dL (6.3-8.2)
[2018-07-03 14:39] LABS: D Dimer < 200 ng/mL (<230)
--- NOTE | 2018-07-03 14:39 | DI.CT.S_ITS ---
PROCEDURE: CT HEAD/BRAIN WO CON INDICATIONS: progressive headache, numbness, treated for bells palsy TECHNIQUE: Noncontrast 4.5 mm thick angled axial sections acquired from the foramen magnum to the vertex, with coronal and sagittal reformats. For radiation dose reduction, the following was used: automated exposure control, adjustment of mA and/or kV according to patient size. COMPARISON: None. FINDINGS: Image quality: Excellent. CSF spaces: Basal cisterns are patent. No extra-axial fluid collections. Ventricles are normal in size and shape. Brain: No midline shift. No intracranial masses or hemorrhage. Giordano-white matter interface is normal. Skull and face: Calvarium and visualized facial bones are intact, without suspicious lesions. Sinuses: Visualized sinuses and mastoids are clear. IMPRESSION: No acute intracranial disease process. Dictated by: Henrietta Ramirez MD, PhD on 07/03/2018 at 14:50 Approved by: Henrietta Ramirez MD, PhD on 07/03/2018 at 14:51
[2018-07-03 14:49] LABS: Troponin I < 0.012 ng/mL (0.01-0.034)
[2018-07-03] MEDS: DEXAMETHASONE 10 MG/ML VIAL IV (14:49)
[2018-07-03 15:37] LABS: Bacteria Urine None Seen; RBC Urine None Seen (0-5/HPF); WBC Urine None Seen (0-5/HPF)
[2018-07-03] MEDS: KETOROLAC 60 MG/2 ML VIAL 30 MG IV (15:39)
[2018-07-03] MEDS: diphenhydrAMINE 50 MG/ML VIAL IV (15:39)
[2018-07-03 15:47] LABS: Culture Indicated Urine Cult Not Indicated; Squamous Epithelial Cell Urine 0-1 /HPF (0-5/HPF)
[2018-07-03] MEDS: SODIUM CHLORIDE 0.9% 1,000 ML 1000 ML IV (15:51)
[2018-07-03 16:31] VITALS: BP 143/94; PULSE 89; RESP 17; O2SAT 96
[2018-07-03 17:36] VITALS: BP 145/104; PULSE 85; RESP 17; O2SAT 97
== END 2018-07-03 18:00 | disposition home or self-care (01) ==
PROVIDERS: Emergency Provider Nurse Practitioner Family
DX: R51 Headache (principal); R20.0 Anesthesia of skin; R00.0 Tachycardia, unspecified; R06.02 Shortness of breath; R73.9 Hyperglycemia, unspecified
CPT/HCPCS: 36591; 70450; 71045; 80053; 81003; 81015; 81025; 82550; 84484; 85025; 85379; 85610; 93005; 96361; 96374; 96375; 99283; 99285; J1100; J1200; J1885

== ENCOUNTER 2019-01-03 13:25 | Emergency (ER) | payer OTHER, SELFPAY ==
[2019-01-03 13:30] VITALS: BP 112/74; PULSE 93; RESP 18; TEMP 36.2; O2SAT 98
--- NOTE | 2019-01-03 14:51 | ED.HA ---
HPI - Headache General Chief Complaint: Headache Stated Complaint: states severe head and neck pain Time Seen by Provider: 01/03/19 14:30 Mode of arrival: Ambulatory Limitations: no limitations History of Present Illness HPI Narrative: 43-year-old female nonsmoker with history of headaches since June presents with ongoing headache. She denies any injury, she denies any neurologic symptoms such as blurred vision, trouble with speech nor numbness, tingling or weakness. Patient denies any fever or chills. She states she has had this headache most days since June. She has had extensive workup including multiple CT scans, MRI. She is taking Fioricet it does not help. Complaint: headache Onset (ago): month(s) Onset description: gradual Location: left Severity: moderate Quality: aching and throbbing Relieving factors: nothing Exacerbating factors: light and noise Associated symptoms: nausea Treatments prior to arrival: migraine medication Related Data Home Medications Medication Instructions Recorded Confirmed Calcium 1 tab PO DAILY 07/03/18 07/03/18 Glucosamine 1 tab PO DAILY 07/03/18 07/03/18 [place]-3 1 cap PO DAILY 07/03/18 07/03/18 duloxetine 20 mg PO BID 07/03/18 07/03/18 multivitamin 1 tab PO DAILY 07/03/18 07/03/18 prednisone 1 dose PO TAPER 07/03/18 07/03/18 atorvastatin 40 mg PO DAILY 01/03/19 01/03/19 dulaglutide [Trulicity] mg SUBCUT 01/03/19 lisinopril 40 mg PO DAILY 01/03/19 01/03/19 metformin 500 mg PO TID 01/03/19 Previous Rx's Medication Instructions Recorded artificial tears(hypromellose) 2 drop EYE-RIGHT Q3H PRN #15 ml 05/01/18 Allergies Allergy/AdvReac Type Severity Reaction Status Date / Time cyclobenzaprine Allergy Rash Verified 05/01/18 19:30 [From Flexeril] Review of Systems Constitutional Constitutional: Denies chills, Denies fatigue, Denies fever(s), Denies frequent falls, Reports headache(s), Denies lethargy and Denies weakness Eyes Eyes: Denies change in vision, Denies eye discharge, Denies irritation and Denies loss of vision ENT Ears, Nose, Mouth, and Throat: Denies change in voice, Denies dizziness, Reports headache(s), Denies neck pain, Denies sore throat and Denies throat swelling Cardiovascular Cardiovascular: Denies chest pain, Denies irregular heart rhythm, Denies lightheadedness, Denies palpitations, Denies dyspnea, Denies dyspnea on exertion and Denies orthopnea Respiratory Respiratory: Denies cough, Denies dyspnea, Denies dyspnea on exertion and Denies wheezing Gastrointestinal Gastrointestinal: Denies abdominal pain, Denies change in bowel habits, Denies diarrhea, Denies nausea and Denies vomiting Genitourinary Genitourinary: Denies hematuria, Denies flank pain, Denies urinary incontinence and Denies urinary urgency Musculoskeletal Musculoskeletal: Denies back pain, Denies muscle weakness, Denies neck pain, Denies numbness and Denies tingling Integumentary/Breasts Skin/Breast: Denies pruritus, Denies erythema, Denies rash and Denies wounds Neurologic Neurologic: Denies behavioral changes, Denies confusion, Denies dizziness, Denies frequent falls, Reports headache(s), Denies loss of vision, Denies numbness, Denies tingling and Denies weakness Psychiatric Psychiatric: Denies anxiety, Denies behavioral changes, Denies confusion, Denies depression, Denies homicidal ideation and Denies suicidal ideation Endocrine Endocrine: Denies fatigue, Denies flushing and Denies palpitations Hematologic/Lymphatic Hematologic/Lymphatic: Denies easy bruising Allergic/Immunologic Allergic/Immunologic: Denies urticaria, Denies throat swelling and Denies wheezing Patient History Social History Smoking Status: Former smoker alcohol intake frequency: a few times a month Substance Use Type: does not use Exam Narrative Exam Narrative: GENERAL: [43] year old patient appears stated age. Well-nourished, well-developed patient, in mild distress. HEAD: Atraumatic. Normocephalic. EYES: Pupils equal round and reactive. Extraocular motions intact. No scleral icterus. No injection or drainage. ENT: Nose without bleeding, purulent drainage. Throat without erythema, tonsillar hypertrophy or exudate. Airway patent. NECK: Trachea midline. Non tender, no meningeal signs CARDIOVASCULAR: Regular rate and rhythm without murmurs, gallops, or rubs. RESPIRATORY: Clear to auscultation. Breath sounds equal bilaterally. No wheezes, rales, or rhonchi. GASTROINTESTINAL: Abdomen soft, non-tender, nondistended. EXTREMITIES: No edema or joint tenderness. BACK: Nontender without deformity or crepitance. No flank tenderness. NEURO: AOx3. SKIN: No rash or erythema of visible areas NIH Stroke Scale 1a. LOC: Patient is alert and keenly responsive (0) 1b. LOC Questions: Patient answers both LOC questions accurately (0) 1c. LOC Commands: Patient performs both tasks correctly (0) 2. Best Gaze: Normal (0) 3. Visual: No visual loss (0) 4. Facial palsy: Normal symmetrical movements (0) 5. Motor arm: No drift (0) 6. Motor leg: No drift (0) 7. Limb ataxia: Absent (0) 8. Sensory: Normal (0) 9. Best language: No aphasia; normal (0) 10. Dysarthria: Normal (0) 11. Extinction and inattention: No abnormality (0) NIHSS: 0 Initial Vital Signs Initial Vital Signs: Vital Signs Temperature 97.1 F L 01/03/19 13:30 Pulse Rate 93 H 01/03/19 13:30 Respiratory Rate 18 01/03/19 13:30 Blood Pressure 112/74 01/03/19 13:30 Pulse Oximetry 98 01/03/19 13:30 Course Orders Ordered: Discontinued Medications Dexamethasone (Decadron) 10 mg IV NOW ONE Stop: 01/03/19 15:27 Last Admin: 01/03/19 15:34 Dose: 10 mg Documented by: ENZO Sodium Chloride (Normal Saline 0.9%) 1,000 mls @ 1,000 mls/hr IV BOLUS ONE Stop: 01/03/19 16:25 Last Infusion: 01/03/19 16:39 Dose: 0 mls/hr Documented by: Admin: 01/03/19 15:34 Dose: 1,000 mls/hr Documented by: ENZO Ketorolac Tromethamine (Toradol) 15 mg IV NOW ONE Stop: 01/03/19 15:27 Last Admin: 01/03/19 15:34 Dose: 15 mg Documented by: ENZO Metoclopramide HCl (Reglan) 10 mg IV NOW ONE Stop: 01/03/19 15:27 Last Admin: 10/23/19 15:34 Dose: 10 mg Documented by: SCOTTOTEM Reevaluation(s) Reevaluation #1: Patient has a near complete resolution of symptoms after above-stated therapies Vital Signs Vital signs: Vital Signs - 8 hr 01/03/19 13:30 01/03/19 16:52 Temperature 97.1 F L Pulse Rate 93 H 89 Respiratory Rate 18 19 Blood Pressure 112/74 Blood Pressure [Left Wrist] 118/70 Pulse Oximetry 98 100 Discharge Plan Departure Patient Disposition: Home Clinical Impression: Headache Qualifiers: Headache type: unspecified Headache chronicity pattern: acute headache Intractability: not intractable Qualified Code(s): R51 - Headache Discharge Date/Time: 01/03/19 16:55 Instructions: DI for Headache Activity Restrictions/Additional Instructions: *You have been diagnosed with [acute migraine-type headache] *What to do: *Take medications as directed *Follow up with your primary care provider in 2-3 days, call for an appointment. Let them know you were seen in the Emergency Department and that we ask that you be seen in follow up *Return to ER if you should have any new, worsening or concerning symptoms Prescriptions: No Action prednisone 10 mg tablet 1 dose PO TAPER RF: 0 duloxetine 20 mg capsule,delayed release(DR/EC) 20 mg PO BID RF: 0 multivitamin Tablet 1 tab PO DAILY RF: 0 Calcium 1 tab PO DAILY RF: 0 Glucosamine 1 tab PO DAILY RF: 0 [place]-3 1 cap PO DAILY RF: 0 artificial tears(hypromellose) 0.5 % drops 2 drop EYE-RIGHT Q3H PRN (Reason: dry eyes) Qty: 15 RF: 0 atorvastatin 40 mg tablet 40 mg PO DAILY RF: 0 lisinopril 40 mg tablet 40 mg PO DAILY RF: 0 metformin 500 mg tablet extended release 24 hr 500 mg PO TID RF: 0 Trulicity 0.75 mg/0.5 mL pen injector SUBCUT RF: 0 Referrals: Papi Marcus MD [Physician] -
[2019-01-03] MEDS: SODIUM CHLORIDE 0.9% 1,000 ML 1000 ML IV (15:34)
[2019-01-03] MEDS: DEXAMETHASONE 10 MG/ML VIAL IV (15:34)
[2019-01-03] MEDS: KETOROLAC 60 MG/2 ML VIAL 15 MG IV (15:34)
[2019-01-03] MEDS: METOCLOPRAMIDE 10 MG/2 ML INJ IV (15:34)
--- NOTE | 2019-01-03 15:56 | PC.NURSE ---
O2 decreased [place]ARA from 7/10 to 5/10
[2019-01-03 16:52] VITALS: BP 118/70; PULSE 89; RESP 19; O2SAT 100
== END 2019-01-03 16:55 | disposition home or self-care (01) ==
PROVIDERS: Emergency Provider Emergency Medicine
DX: R51 Headache (principal)
CPT/HCPCS: 96361; 96374; 96375; 99283; 99284; J1100; J1885; J2765

== ENCOUNTER → 2019-03-13 15:08 | Outpatient (CLI) | payer OTHER, SELFPAY ==
--- NOTE | 2019-03-13 | DI.MRI.S_ITS ---
PROCEDURE: MR STROKE Pre- and post-contrast brain MRI, non-contrast brain MR angiogram, pre- and postcontrast neck MR angiogram INDICATIONS: PERSISTENT MIGRANE HEADACHES TECHNIQUE: Brain: Noncontrast axial T1 spin echo, axial T2 fast spin echo, sagittal and axial FLAIR, coronal T2 fast spin echo, axial gradient echo, axial diffusion and ADC through the brain. After the administration of contrast, axial 3D VIBE of the cranial vasculature and brain. Brain MRA: Non-contrast 3-D time of flight MR angiogram, with multiple doclfyd-xwdkonqvx-htjdkycoky (MIP) reformats performed. Neck MRA: Axial and sagittal TruFISP through the neck. Coronal dynamic MR angiogram during administration of contrast in the arterial and venous phases, with 3-dimenstional nzaiapw-ntwdampry-wdzoboexug (MIP) reformats constructed from subtraction images. COMPARISON: [facility], CT, CT HEAD/BRAIN WO CON, 07/03/2018, 14:37. FINDINGS: Image quality: Excellent. BRAIN: CSF spaces: Ventricles are normal in size and shape. Basal cisterns are patent. No extra-axial fluid collections. Brain: No intracranial bleeds or mass effects. Giordano-white matter interface is normal. Diffusion weighted images show no acute ischemic insults. Brainstem appears normal. Normal intravascular flow voids are present. No abnormal intracranial enhancement. Skull and face: Calvarial marrow signal is normal. Orbits appear normal. Sinuses: Sinuses and mastoids are clear. BRAIN MR ANGIOGRAM: Anterior circulation: Intracranial internal carotid arteries are normal in size and enhancement. The flow within the paired anterior cerebral arteries is normal and symmetric. The flow within the middle cerebral arteries is normal and symmetric. The anterior communicating artery is seen. No stenoses, occlusions, or aneurysms. Posterior circulation: The visualized portions of the vertebral arteries demonstrate normal caliber, and join to form a normal appearing basilar artery. Bilateral type origins of the posterior cerebral arteries are incidentally noted. The flow within the posterior cerebral arteries is normal and symmetric. No stenoses, occlusions, or aneurysms. NECK MR ANGIOGRAM: Carotids: Incidental note is made of a common origin of the right brachiocephalic artery and the left common carotid artery (bovine type arch). 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 The origins of the common carotid arteries appear patent. The calibers and courses of both common carotid arteries are normal. The bifurcation regions appear normal bilaterally. The internal carotid arteries demonstrate normal course and caliber. Posterior circulation: The origins of the vertebral arteries appear patent. More superior portions of both vertebral arteries demonstrate normal course and caliber, and join to form a normal appearing basilar artery. Miscellaneous: Subclavian arteries appear patent. Pre-contrast images through the neck show no soft tissue abnormalities. IMPRESSION: BRAIN MRI: Unremarkable intracranial study, without an imaging explanation found for the patient's presenting history of headache. No findings of acute or subacute infarction can be seen. BRAIN MR ANGIOGRAM: No significant intracranial arterial abnormality is seen. 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 NECK MR ANGIOGRAM: Within the arteries of the neck, no hemodynamically significant stenosis can be seen. 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 Dictated by: James Alonzo M.D. on 03/13/2019 at 15:57 Approved by: James Alonzo M.D. on 03/13/2019 at 16:00
== END ==
PROVIDERS: Family Provider Family Medicine; PCP Family Medicine; Visit Provider Psychiatry & Neurology Neurology
DX: G43.909 Migraine, unspecified, not intractable, without status migrainosus (principal)
CPT/HCPCS: 70548; 70553; A9579

== ENCOUNTER → 2021-12-20 14:10 | Outpatient (CLI) | payer OTHER, SELFPAY ==
--- NOTE | 2021-12-20 14:12 | DI.RAD.S_ITS ---
PROCEDURE: XR KNEE RT 3V INDICATIONS: Fall right knee TECHNIQUE: 3 views of the knee were acquired. COMPARISON: None. FINDINGS: Bones: No acute appearing fractures or dislocations. There is an apparent intra-articular body seen along the posterior lateral aspect of the lateral femoral condyle. No suspicious bony lesions. There is mild medial femorotibial joint space narrowing seen, with associated remodeling changes including subchondral sclerosis and osteophyte formation along the jointline. Enthesophytes can be seen along the superior and inferior aspects of the patella on the lateral view. Osteophyte formation can be seen along the margins of the patella. There is mild medial femorotibial joint space narrowing seen, with associated remodeling changes including subchondral sclerosis and osteophyte formation along the jointline. Soft tissues: No significant joint effusion. No suspicious soft tissue calcifications. IMPRESSION: No acute fracture can be seen. Underlying degenerative changes are seen. If it would be helpful for clinical management decision making, please consider a dedicated, scheduled knee MRI for further evaluation (assuming that there is no contraindication). Dictated by: James Alonzo M.D. on 12/20/2021 at 14:08 Approved by: James Alonzo M.D. on 12/20/2021 at 14:09
== END ==
PROVIDERS: Family Provider Family Medicine; PCP Student in an Organized Health Care Education/Training Program; Referring Provider Nurse Practitioner Family; Visit Provider Nurse Practitioner Family
DX: S89.91XA Unspecified injury of right lower leg, initial encounter (principal); W19.XXXA Unspecified fall, initial encounter
CPT/HCPCS: 73562

== ENCOUNTER → 2023-10-13 12:40 | Outpatient (CLI) | payer OTHER, SELFPAY | LOC: PHYS 12:40 | PROVIDERS: Family Provider Family Medicine; PCP Student in an Organized Health Care Education/Training Program | DX: M79.643 Pain in unspecified hand (principal) | CPT/HCPCS: 95886; 95911 ==